=== PATIENT | female | born 2000 | race African-American/Black ===

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

== ENCOUNTER 2020-01-22 23:29 | Emergency (ER) | payer OTHER ==
[~2020-01-22] VITALS: Ht 162.6 cm; Wt 62.1 kg
[~2020-01-22 23:29] MED LIST changes: +AUGMENTIN 875-1 EACH PO; +IBUPROFEN 800800 M1 PO; +NORCO 5-325 TA1 EAC1 PO
[2020-01-23 00:39] VITALS: BP 126/88
== END 2020-01-23 00:44 | disposition home or self-care (01) ==
LOC: ER 23:29
DX: S63.614A Unspecified sprain of right ring finger, initial encounter (principal); E10.9 Type 1 diabetes mellitus without complications; Z79.4 Long term (current) use of insulin; W51.XXXA Accidental striking against or bumped into by another person, initial encounter; Y93.89 Activity, other specified; Y92.89 Other specified places as the place of occurrence of the external cause; Y99.8 Other external cause status

== ENCOUNTER 2020-03-02 13:28 | Emergency (ER) | payer OTHER ==
[~2020-03-02] VITALS: Ht 162.6 cm; Wt 61.7 kg
[2020-03-02] MEDS ORDERED: AMOXICILLIN 50500 MG PO (14:51)
[2020-03-02 15:28] VITALS: BP 122/76
== END 2020-03-02 15:29 | disposition home or self-care (01) ==
LOC: ER 13:28
DX: J02.0 Streptococcal pharyngitis (principal); E10.9 Type 1 diabetes mellitus without complications; Z20.828 Contact with and (suspected) exposure to other viral communicable diseases

== ENCOUNTER 2020-03-04 09:56 | Emergency (ER) | payer OTHER ==
[~2020-03-04] VITALS: Ht 162.6 cm; Wt 62.1 kg
[~2020-03-04 09:56] MED LIST changes: +AMOXICILLIN 50500 MG PO
[2020-03-04 10:26] LABS: URINE BILIRUBIN NEGATIVE (Negative); URINE BLOOD 3+ (Negative); URINE CLARITY CLEAR; URINE COLOR YELLOW; URINE GLUCOSE-RANDOM* 2+ (Negative); URINE KETONES 3+ (Negative); URINE LEUKOCYTES-REFLEX NEGATIVE (Negative); URINE NITRITE-REFLEX NEGATIVE (Negative); URINE PROTEIN (DIPSTICK) NEGATIVE (Negative); URINE UROBILINOGEN 0.2 E.U./dl (0.2-1.0)
[2020-03-04 10:39] LABS: SQUAMOUS 0-3 Few /LPF (0-3)
[2020-03-04 10:40] LABS: BACTERIA-REFLEX 1-9 Few /HPF (None Seen); CASTS None Seen /LPF (None Seen); CRYSTALS None Seen /LPF (None Seen); URINE RBC 0-2 Rare /HPF (0-2); URINE WBC-REFLEX None Seen /HPF (0-5)
[2020-03-04 11:14] LABS: CALCIUM 9.1 mg/dL (8.5-10.1); CREATININE 0.6 mg/dL (0.6-1.0); POTASSIUM 3.7 mmol/L (3.5-5.1)
[2020-03-04 11:17] LABS: HEMATOCRIT 39.2 % (37.0-47.0); HEMOGLOBIN 12.8 gm/dL (12.0-15.0); MCH 26.2 pg (26.0-34.0); MCHC 32.6 g/dL (28.0-37.0); MCV 80.2 fL (80.0-100.0); RBC 4.89 mil/uL (4.20-5.00); RDW 13.1 % (10.5-14.5); WBC 7.2 thou/uL (4.0-11.0)
[2020-03-04] MEDS ORDERED: LANTUS SUBQ (14:04)
[2020-03-04] MEDS ORDERED: HUMALOG100 UNIT/1 SUBQ (14:04)
[2020-03-04 15:07] VITALS: BP 108/68
== END 2020-03-04 15:07 | disposition home or self-care (01) ==
LOC: ER 09:56
PROVIDERS: Emergency Medicine
DX: O03.9 Complete or unspecified spontaneous abortion without complication (principal); O24.011 Pre-existing type 1 diabetes mellitus, in pregnancy, first trimester; E10.9 Type 1 diabetes mellitus without complications; Z79.2 Long term (current) use of antibiotics; Z3A.01 Less than 8 weeks gestation of pregnancy

== ENCOUNTER 2020-06-03 02:59 | Emergency (ER) | payer OTHER ==
[~2020-06-03] VITALS: Ht 162.6 cm; Wt 62.6 kg
[2020-06-03 04:18] VITALS: BP 121/74
== END 2020-06-03 04:19 | disposition home or self-care (01) ==
LOC: ER 02:59
DX: H10.9 Unspecified conjunctivitis (principal); E10.9 Type 1 diabetes mellitus without complications; Z98.890 Other specified postprocedural states; Z79.4 Long term (current) use of insulin